=== PATIENT | female | born 1975 | race Caucasian/White ===

== ENCOUNTER 2017-12-07 16:42 | Emergency (ER) | payer OTHER ==
--- NOTE | 2017-12-07 16:51 | PDOC ---
Rapid Medical Evaluation Time Seen by Provider: 12/07/17 16:47 Medical Evaluation: Allergies Allergy/AdvReac Type Severity Reaction Status Date / Time Penicillins Allergy Verified 12/07/17 16:47 12/07/17 16:48 Pt c/o: low back pain over 1 year but increased x 3 weeks, sees a chiropractor, no saddle anesthesia, no weakness/incontinence, had xray of lumbar spine 3 months ago which showed "dislocation of vertebrae" Pt on brief exam: no midline tenderness Pt ordered for: lumbar xray pt to proceed to the ED: Discharge Disposition - Diagnosis Lumbar pain - Referrals - Patient Instructions - Post Discharge Activity
[2017-12-07 16:52] VITALS: BP 126/91; PULSE 105; TEMP 98.4; BMI 31.2
[2017-12-07] MEDS ORDERED: KETOROLAC TROMETHAMINE 60 MG/2 ML VIAL IM ONE (17:21)
[2017-12-07] MEDS ORDERED: KETOROLAC TROMETHAMINE 60 MG/2 ML VIAL ONE (17:22)
--- NOTE | 2017-12-07 17:28 | PDOC ---
History of Present Illness - General Chief Complaint: Back Pain Stated Complaint: BACK PAIN Time Seen by Provider: 12/07/17 16:47 - History of Present Illness Initial Comments: 12/07/17 17:22 42-year-old female without comorbidities presents for evaluation of lower back pain with right posterior lateral leg radiculopathy 2 weeks. Taking aspirin at home without relief she presents for further evaluation and treatment options. She denies loss of bowel bladder function or saddle paresthesia. Past History - Past Medical History Allergies/Adverse Reactions: Allergies Allergy/AdvReac Type Severity Reaction Status Date / Time Penicillins Allergy Verified 12/07/17 16:47 Home Medications: Ambulatory Orders Aspirin 81 mg PO DAILY 12/07/17 Cyclobenzaprine HCl [Flexeril 10 mg] 10 mg PO HS PRN #10 tablet 12/07/17 Methylprednisolone [Medrol Dose Yanick] 4 mg PO ASDIR #21 tablet 12/07/17 COPD: No Other medical history: chr back pain - Suicide/Smoking/Psychosocial Hx Smoking History: Never smoked Review of Systems - Review of Systems Musculoskeletal: Yes: See HPI, Back Pain All Other Systems: Reviewed and Negative *Physical Exam - Vital Signs Last Vital Signs Temp Pulse Resp BP Pulse Ox 98.4 F 105 H 22 H 126/91 100 12/07/17 16:50 12/07/17 16:50 12/07/17 16:50 12/07/17 16:50 12/07/17 16:50 - Physical Exam Comments: 12/07/17 17:23 Lumbar spine skin color and temperature are normal range of motion is decreased secondary to pain there is moderate right and left paralumbar musculature spasm and tenderness, 5 out of 5 strength in bilateral lower extremity spasm straight leg raise test on the right negative on the left no gross sensorimotor deficits thighs and calves are soft and nontender she is neurovascular intact. Medical Decision Making - Medical Decision Making 12/07/17 17:24 Lumbar radiculopathy, Toradol in the emergency room Medrol Dosepak and Flexeril at home follow-up with spine surgery *DC/Admit/Observation/Transfer Diagnosis at time of Disposition: Lumbar pain, Lumbar radicular pain - Discharge Dispostion Disposition: HOME Condition at time of disposition: Stable Decision to Admit order: No - Prescriptions Prescriptions: Cyclobenzaprine HCl [Flexeril 10 mg] 10 mg PO HS PRN #10 tablet PRN Reason: Muscle Spasms Methylprednisolone [Medrol Dose Yanick] 4 mg PO ASDIR #21 tablet - Referrals Referrals: Daniel Ch MD [Staff Physician] - - Patient Instructions Printed Discharge Instructions: Lumbar Radiculopathy, DI for Lumbar Radiculopathy Additional Instructions: Regrese a la mitchell de emergencias si los sntomas empeoran o no se resuelven. Por favor, ming un seguimiento con ciruga de columna vertebral en 2-3 robbins para crissy evaluacin adicional y opciones de tratamiento. Por favor, tome el paquete de esteroides mihir se indica. No tome ms medicamento adems de Tylenol si no necesita aspirina o antiinflamatorios. Los relajantes musculares crissy tableta antes de acostarse te harn dormir. Regrese a la mitchell de emergencias si los sntomas empeoran o no se resuelven. return to the emergency room should symptoms worsen or go unresolved. Please follow-up with spine surgery in 2-3 days for further evaluation and treatment options. Please take steroid pack as directed. Do not take any more medication on top of that except Tylenol if she needs to no aspirin or anti- inflammatories. The muscle relaxers one tablet before bedtime it will make you sleepy. Return to the emergency room should symptoms worsen or go unresolved. - Post Discharge Activity
== END 2017-12-07 17:38 | disposition home or self-care (01) ==
LOC: JERFT 16:42
PROC: 3E0233Z Introduction of Anti-inflammatory into Muscle, Percutaneous Approach (ICD-10-PCS; principal; 2017-12-07)
DX: M54.16 Radiculopathy, lumbar region (principal)
CPT/HCPCS: 72100-TC-FY; 99281-25